=== PATIENT | male | born 1945 ===

== ENCOUNTER 2020-11-18 16:53 | Emergency (ER) | payer OTHER ==
[~2020-11-18] VITALS: Ht 170.2 cm; Wt 59.0 kg
[2020-11-18 17:28] LABS: Basophils # (auto) 0 10 ^3/uL (0-0.2); Basophils % (auto) 0.2 % (0.0-2.0); Eosinophils # (auto) 0.1 10 ^3/uL (0-0.8); Eosinophils % (auto) 0.3 % (0.0-7.0); Hematocrit 27.4 % (41.0-53.0); Hemoglobin 8.5 g/dL (13.5-17.5); Lymphocytes # (auto) 1.3 10 ^3/uL (0.4-5.4); Lymphocytes % (auto) 8.2 % (10.0-50.0); Mean Corpuscular Hemoglobin 23.8 pg (28.0-32.0); Mean Corpuscular Hgb Conc. 31.2 g/dL (32.0-36.0); Mean Corpuscular Volume 76.5 fL (80.0-100.0); Monocytes # (auto) 0.7 10 ^3/uL (0-1.3); Monocytes % (auto) 4.7 % (0.0-12.0); Neutrophils # (auto) 13.8 10 ^3/uL (1.6-8.6); Neutrophils % (auto) 86.6 % (37.0-80.0); Red Blood Cells 3.58 10^6/uL (4.5-5.90); Red Cell Distribution Width 16.8 % (11.8-14.3); White Blood Cell 15.9 10^3/uL (4.4-10.8)
[2020-11-18 17:49] LABS: Albumin 2.9 g/dL (3.4-5.0); Anion Gap 6 (5-15); BUN/Creatinine Ratio 14.7; Blood Urea Nitrogen 24 mg/dL (7-18); Carbon Dioxide 25 mmol/L (21-32); Chloride 104 mmol/L (98-107); GFR African American 53 mL/min; GFR Non-African American 44 mL/min; Glucose 100 mg/dL (74-106); Potassium 3.6 mmol/L (3.5-5.1); Sodium 135 mmol/L (136-145)
[2020-11-18 17:53] LABS: Alanine Aminotransferase 15 U/L (16-61); Alkaline Phosphatase 88 U/L (45-117); Aspartate Aminotransferase 17 U/L (15-37); Bilirubin, Total 0.6 mg/dL (0.2-1.0); Total Protein 8.4 g/dL (6.4-8.2)
[2020-11-18] MEDS ORDERED: ACETAMINOPHEN 325 MG TAB PO ONE (19:45)
[2020-11-18] MEDS ORDERED: SODIUM CHLORIDE 0.9% 1,000 ML IV ONE (19:45)
[2020-11-18] MEDS ORDERED: cefTRIAXone 1GM/50ML D5W 50 ML IV ONE (19:45)
[2020-11-18 20:19] LABS: Lipase 113 U/L (73-393)
[2020-11-18 20:21] LABS: INR 1.2 (0.9-1.15); Partial Thromboplastin Time 29.9 sec (23.6-33.0)
[2020-11-18] MEDS ORDERED: MORPHINE SULFATE INJECTION 2 MG/ML SYRG IV ONE (23:30)
[2020-11-19 01:52] VITALS: BP 151/52
[2020-11-19 02:06] LABS: Urine Bacteria MOD /hpf (None Seen); Urine Blood 3+ /uL (Negative); Urine Specific Gravity 1.016 (1.001-1.035); Urine WBC 5 /hpf (0 - 3)
== END 2020-11-19 03:09 | disposition home or self-care (01) ==
LOC: ER 16:53 → EDBD 16:53 → ER 11-19 03:09
DX: D64.9 Anemia, unspecified (principal); R53.1 Weakness; N17.9 Acute kidney failure, unspecified; Z20.822 Contact with and (suspected) exposure to COVID-19
CPT/HCPCS: 36415; 71045; 80053; 81001; 83605; 83690; 83735; 84484; 85025; 85610; 85730; 87040; 87086; 87426; 93005; 96365; 96375; 99285; J0696; J2270; J7030